=== PATIENT | female | born 1975 | race Caucasian/White ===

== ENCOUNTER 2025-06-01 15:16 | Emergency (ER) | payer BC ==
[~2025-06-01] VITALS: Ht 172.7 cm; Wt 55.8 kg
== END 2025-06-01 15:52 | disposition home or self-care (01) ==
LOC: ED 15:16
DX: G89.29 Other chronic pain (principal); M54.50 Low back pain, unspecified; W18.39XA Other fall on same level, initial encounter; Y93.89 Activity, other specified; Y92.89 Other specified places as the place of occurrence of the external cause; Y99.8 Other external cause status